=== PATIENT | female | born 2000 | race African-American/Black ===

== ENCOUNTER 2020-12-21 16:08 | Emergency (ER) | payer SELFPAY ==
[~2020-12-21] VITALS: Ht 165.1 cm; Wt 90.7 kg
[2020-12-21] MEDS ORDERED: KETOROLAC TROMETHAMINE 30 MG/ML VIAL IV NR ×2 (17:21→18:32)
[2020-12-21] MEDS ORDERED: SODIUM CHLORIDE 0.9% 1000ML 1,000 ML IV STA (17:21)
[2020-12-21] MEDS ORDERED: SODIUM CHLORIDE 0.9% 50ML 50 ML ONE (18:07)
[2020-12-21] MEDS ORDERED: IOPAMIDOL 370 MG/ML 200 ML INFUS..BTL INJ ONE (18:07)
[2020-12-21] MEDS ORDERED: SODIUM CHLORIDE 0.9% 1000ML 1,000 ML ONE (18:36)
[2020-12-21] MEDS ORDERED: KETOROLAC TROMETHAMINE 30 MG/ML VIAL ONE (18:36)
[2020-12-21 20:35] VITALS: BP 137/85
== END 2020-12-21 20:35 | disposition home or self-care (01) ==
LOC: FSED 17:30
DX: M54.5 Low back pain (principal); R10.11 Right upper quadrant pain; K80.80 Other cholelithiasis without obstruction
CPT/HCPCS: 74177; 76705; 99284; J1885; J7030; Q9967